=== PATIENT | male | born 1950 | race Caucasian/White ===

== ENCOUNTER 2016-09-17 08:31 | Day surgery (SDC) | payer MEDICARE, OTHER ==
[2016-09-17] MEDS ORDERED: PROPOFOL 10 MG/ML VIAL IV ONE (14:00)
[2016-09-17] MEDS ORDERED: MIDAZOLAM HCL 2MG/2ML VIAL IV ONE (14:00)
[2016-09-17] MEDS ORDERED: LIDOCAINE 2% MDV (20MG/ML) 20ML VIAL IV ONE (14:00)
--- NOTE | 2016-09-22 11:19 | Operative Note ---
DATE OF SURGERY: 09/17/2016 OPERATION: COLONOSCOPY with right and left colon biopsy. PREOPERATIVE DIAGNOSIS: Colon polyps and surveillance. POSTOPERATIVE DIAGNOSES: 1. Diffuse colitis, left-sided greater than right. 2. Sigmoid diverticulosis. PROCEDURE: After informed consent was obtained from the patient, he was placed in the left lateral decubitus position in the endoscopy suite, sedated and monitored by the department of anesthesia. Digital rectal exam was unremarkable. A well-lubricated [id number] colonoscope was inserted into the rectum and advanced to the cecum. There were moderate colitic changes primarily in the rectum, sigmoid colon, and descending colon. There were mild changes and patchy changes with small ulcers noted in the transverse and ascending colon and cecum. Random biopsies were obtained from the right colon as well as the rectosigmoid colon and left colon. There were a few diverticula in the sigmoid colon. No polyps were seen. J-turn views were not performed given the inflammation noted. The rectal ampulla was deflated, and the endoscope was removed. RECOMMENDATIONS: It should be noted that stool studies were obtained to rule out the possibility of occult C difficile infection. We will await the results of biopsies. He will require repeat colonoscopy at 5 years at minimum. As always, thank you for allowing me to participate in the healthcare of your patients. CC: Dr. Mya NARANJO
== END 2016-09-17 10:45 | disposition home or self-care (01) ==
LOC: HOP 08:31
PROVIDERS: ATTEND Internal Medicine Gastroenterology
DX: Z12.11 Encounter for screening for malignant neoplasm of colon (principal); E78.00 Pure hypercholesterolemia, unspecified; K57.30 Diverticulosis of large intestine without perforation or abscess without bleeding
CPT/HCPCS: 87493